=== PATIENT | female | born 1965 | race Caucasian/White ===

== ENCOUNTER 2018-06-13 11:34 | Emergency (ER) | payer SELFPAY, OTHER ==
[2018-06-13] MEDS: HYDROcodone/APAP 5/325MG 1 TAB TABLET PO (12:03)
== END 2018-06-13 15:26 | disposition home or self-care (01) ==
LOC: ER 11:34
DX: S52.501A Unspecified fracture of the lower end of right radius, initial encounter for closed fracture (principal); S52.601A Unspecified fracture of lower end of right ulna, initial encounter for closed fracture; Z98.51 Tubal ligation status; W17.89XA Other fall from one level to another, initial encounter; Y93.89 Activity, other specified; Y92.89 Other specified places as the place of occurrence of the external cause; Y99.8 Other external cause status
CPT/HCPCS: 73110; 99284